=== PATIENT | female | born 1980 | race Caucasian/White ===

== ENCOUNTER 2020-03-14 13:38 | Emergency (ER) | payer OTHER ==
--- NOTE | 2020-03-14 14:23 | EDM.PDOC ---
ED HPI GENERAL MEDICAL PROBLEM - General Chief Complaint: Skin Complaint Stated Complaint: FISH HOOK IN LEFT HAND Time Seen by Provider: 03/14/20 14:00 - History of Present Illness Duration: Hour(s): (1) Location: Reports: Upper Extremity, Left Quality: Reports: Sharp - Related Data Allergies Allergy/AdvReac Type Severity Reaction Status Date / Time No Known Allergies Allergy Verified 03/14/20 13:53 Home Meds: Home Meds NK [No Known Home Meds] 03/14/20 [History] Social & Family History - Tobacco Use Smoking Status *Q: Never Smoker ED ROS GENERAL - Review of Systems Review Of Systems: See Below ED EXAM, SKIN/RASH Exam: Not Obtained Exam Limited By: No Limitations General Appearance: Alert Eye Exam: Bilateral Eye: Normal Inspection Head: Atraumatic Neck: Normal Inspection Respiratory/Chest: No Respiratory Distress Skin: Warm, Dry Location, Skin: Upper Extremity, Left, Other (fishing luer embedded in middle phalanx of L middle finger) ED SKIN PROCEDURES - Foreign Body Removal Consent Obtained:: Patient Performing Doctor:: Pantera Liu Anesthesia Type: Local Anesthesia Other:: 1 Percent lidocaine Course - Vital Signs Last Recorded V/S: Last Vital Signs Temp 37.6 C 03/14/20 13:58 Pulse 89 03/14/20 13:58 Resp 14 03/14/20 13:58 BP 136/78 03/14/20 13:58 Pulse Ox 98 03/14/20 13:58 - Orders/Labs/Meds Meds: Medications Discontinued Medications Generic Name Dose Route Start Last Admin Trade Name Will PRN Reason Stop Dose Admin Lidocaine HCl 5 ml 03/14/20 14:21 03/14/20 14:25 Xylocaine-Mpf 1% INJECT 03/14/20 14:22 5 ml ONETIME ONE Administration Departure - Departure Time of Disposition: 14:40 Disposition: Home, Self-Care 01 Condition: Good Clinical Impression: Fish hook injury of finger Qualifiers: Encounter type: initial encounter Laterality: left Qualified Code(s): S69.92XA - Unspecified injury of left wrist, hand and finger(s), initial encounter Puncture wound of finger Qualifiers: Encounter type: initial encounter Qualified Code(s): S61.239A - Puncture wound without foreign body of unspecified finger without damage to nail, initial encounter - Discharge Information Instructions: Puncture Wound, [id number] Referrals: PCP,None [Primary Care Provider] - Forms: ED Department Discharge Sepsis Event Note - Evaluation Sepsis Screening Result: No Definite Risk - Focused Exam Vital Signs: Vital Signs Temp Pulse Resp BP Pulse Ox 03/14/20 13:58 37.6 C 89 14 136/78 98 Date Exam was Performed: 03/14/20 Time Exam was Performed: 14:41
== END 2020-03-14 14:48 | disposition home or self-care (01) ==
LOC: JP.ED 13:38
DX: S61.233A Puncture wound without foreign body of left middle finger without damage to nail, initial encounter (principal); W45.8XXA Other foreign body or object entering through skin, initial encounter
CPT/HCPCS: 99282; J2001